=== PATIENT | male | born 1945 | race Caucasian/White ===

== ENCOUNTER 2022-01-01 18:43 | Emergency (ER) | payer MEDICARE, MEDICAID ==
[2022-01-01 20:03] VITALS: BP 171/76; PULSE 87
[2022-01-01] MEDS ORDERED: Sodium Chloride 0.9% 1,000 ML IV SCH (22:30)
[2022-01-01] MEDS: Potassium Chloride 10 MEQ in Premix Bag 1 BAG IV SCH ×2 (22:55→23:29)
== END 2022-01-01 23:30 ==
LOC: SUPCPDRO 18:43 → JD.ED 18:43
DX: M62.81 Muscle weakness (generalized) (principal); E78.00 Pure hypercholesterolemia, unspecified; E03.9 Hypothyroidism, unspecified; I10 Essential (primary) hypertension; Z79.899 Other long term (current) drug therapy; Z20.822 Contact with and (suspected) exposure to COVID-19; W19.XXXA Unspecified fall, initial encounter
CPT/HCPCS: 36415; 72131; 73502; 80053; 81001; 84443; 85025; 96365; 99285; J3480; J7030; U0002